=== PATIENT | male | born 1970 | race Caucasian/White ===

== ENCOUNTER 2022-03-29 13:14 | Inpatient (IN) | payer MEDICAID, OTHER, SELFPAY ==
[2022-03-29] VITALS (12 sets, daily range): BP systolic 151–225; BP diastolic 68–130; PULSE 43–82; RESP 14–18; TEMP 37.4; O2SAT 98–99; BMI 24.9
--- NOTE | 2022-03-29 13:25 | ECG_ITS ---
Test Reason : hypertension Blood Pressure : / mmHG Vent. Rate : 059 BPM Atrial Rate : 059 BPM P-R Int : 152 ms QRS Dur : 086 ms QT Int : 406 ms P-R-T Axes : 008 -17 016 degrees QTc Int : 401 ms Sinus bradycardia Otherwise normal ECG No previous ECGs available Referred By: Generic ED Physician Electronically Signed By:TONY VILLAGOMEZ
--- NOTE | 2022-03-29 17:39 | ED.GENADULT ---
HPI - General Adult General Chief complaint: Ear Problems Stated complaint: abnormal ekg ear pain Time Seen by Provider: 03/29/22 17:20 Source: patient Mode of arrival: ambulatory Limitations: no limitations History of Present Illness HPI narrative: Patient comes to the emergency room from urgent care. Patient states that approximately 1 week ago, he was in a construction site in [place], stand and water run inside of his left ear, patient started developing significant pain cough, did not seek medical attention, but [id number] medication. Patient states that he no longer has significant pain but he cannot hear out of his left ear. Patient went to urgent care today and when they were taking his vitals, it was noted the patient's blood pressure was above 220 systolic. Patient states that he has no chest pain, shortness of breath, no pressure, no visual changes or headaches. Patient states that he has no medical problems. Related Data Allergies Allergy/AdvReac Type Severity Reaction Status Date / Time No Known Allergies Allergy Verified 03/29/22 17:39 Review of Systems Review of Systems: Constitutional : No Weight loss, No Fever, No Chills, No Night Sweats, No Fatigue, No Malaise ENT/Mouth : Complaining of left ear discomfort and hearing loss of the left side for approximately 1 week and half, No Ear Pain, No Nasal Congestion, No Sinus Pain, No Hoarseness, No sore throat, No Rhinorrhea, No Swallowing Difficulty Eyes: No Eye Pain, No Swelling, No Redness, No Foreign Body, No Discharge, No Vision Changes Cardiovascular : No Chest Pain, No SOB, No Dyspnea on Exertion, No Orthopnea, No Edema, No Palpitations, asymptomatic, newly informed that he has high blood pressure Respiratory : No Cough, No Sputum, No Wheezing, No Smoke Exposure, No Dyspnea Gastrointestinal : No Nausea, No Vomiting, No Diarrhea, No Constipation, No abdominal Pain, No Hematochezia, No Melena Genitourinary : no irregular bleeding, No Dysuria, No Urinary Frequency, No Hematuria, No Urinary Incontinence, No Urgency, No Flank Pain, No Urinary Flow Changes, No Hesitancy Musculoskeletal : No joint pain, No Myalgias, No Joint Swelling Skin : No Skin Lesions, No rash Neuro : No Weakness, No Numbness, No Paresthesias, No Loss of Consciousness, No Dizziness, No Headache Psych : No Anxiety/Panic, No Depression, No SI/HI/AH/VH, No Social Issues, Heme/Lymph: No Bruising, No Bleeding,No Lymphadenopathy Endocrine : No Polyuria, No Polydipsia, No Temperature Intolerance [facility] Social History Social History Advance Directives: No Advance Directives Information Provided: No Physical Exam ED Vital Signs: Vital Signs - 24 hr 03/29/22 13:20 03/29/22 13:26 03/29/22 18:14 Temperature 99.4 F Pulse Rate 67 62 43 L Respiratory Rate 16 14 Blood Pressure 225/130 H 221/129 H 223/111 H Pulse Oximetry 98 99 Oxygen Delivery Method Room Air 03/29/22 18:15 03/29/22 18:50 03/29/22 19:12 Temperature Pulse Rate 51 62 54 Respiratory Rate 18 16 Blood Pressure 174/101 H 163/96 H Pulse Oximetry 98 98 Oxygen Delivery Method Room Air 03/29/22 20:09 03/29/22 21:39 Temperature Pulse Rate 54 53 Respiratory Rate 16 Blood Pressure 184/103 H 168/103 H Pulse Oximetry 99 Oxygen Delivery Method BMI result Body Mass Index 24.9 Const Other: Appearance: Alert. Oriented X3. No acute distress. Eyes: Pupils equal, round and reactive to light. ENT: Pharynx normal. Right ear within normal limits, left ear mildly erythematous ear canal, the tympanic membrane is ruptured Neck: Normal inspection. Neck supple. No lymph nodes noted. No crepitus CVS: Normal heart rate and rhythm. Pulses normal. Normal S1 and S2 Respiratory: No respiratory distress. Breath sounds normal. No Wheezing. No rales Abdomen: Soft and nontender. No rigidity. No distention. Skin: Skin warm and dry. Normal skin color. Normal skin turgor. Extremities: No lower extremity edema. No Lacerations. No Rash Neuro: Oriented X 3. No motor deficit. No sensory deficit. Moving all extremities. No slurred speech. CN 2 through 12 grossly intact Psych: calm, cooperative, normal affect Course Course Course Narrative: I discussed with the patient that he needs to be followed up by ENT, as the left tympanic membrane is rupture. Patient given p.o. Augmentin for erythematous ear canal, no drainage. Patient's blood pressure is dangerously elevated, 225/130, patient is asymptomatic. Labs are pending, EKG within normal limits, no left ventricular strain noted. Patient being given p.o. labetalol 100 mg After 100 mg of labetalol , patient's blood pressure improved to 180 systolic, patient remains symptomatic, we will give him 1 more dose of medication, this time p.o. amlodipine 10 mg. After the above-mentioned medications, blood pressure is 182/113. Patient remains asymptomatic. Patient getting p.o.hydralazine and nitro paste Patient responds well initially to all other medications. But shortly after, his blood pressure goes back to 230/110. Patient remains asymptomatic. I discussed the patient with Dr. Farmer, we will start the patient on Roque tejada Medical Decision Making Lab Data Result diagrams: 03/29/22 18:13 03/29/22 18:13 Labs: Lab Results 03/29/22 03/29/22 03/29/22 Range/Units 18:13 18:13 18:13 WBC 7.5 (4.8-10.8) X10*3/uL RBC 4.96 (4.60-5.80) X10*6/uL Hgb 15.0 (14.0-18.0) g/dl Hct 43.7 (42.0-52.0) % MCV 88.1 (80.0-98.0) fL MCH 30.2 (27.0-33.0) pg MCHC 34.3 (31.0-36.0) g/dl RDW 12.8 (11.0-16.0) % Plt Count 308 (160-400) X10*3/uL MPV 9.6 (9.4-12.4) fL Immature Gran % (Auto) 0.3 (0.0-0.4) % Neut % (Auto) 54.5 (45-73) % Lymph % (Auto) 34.9 (20-40) % [place] % (Auto) 8.1 (2-11) % Eos % (Auto) 1.7 (0-4) % Baso % (Auto) 0.5 (0-2) % Lymph # (Auto) 2.6 (1.2-4.9) X10*3/uL [place] # (Auto) 0.6 (0.1-1.2) X10*3/uL Eos # (Auto) 0.1 (0.0-0.4) X10*3/uL Baso # (Auto) 0.0 (0.0-0.2) X10*3/uL Abs Immat Gran (auto) 0.02 (0.00-0.03) X10*3/uL Absolute Neuts (auto) 4.1 (2.0-8.3) x10*3/uL Absolute Nucleated RBC 0.000 (0.0-0.012) X10*3/uL Nucleated RBC % (auto) 0.0 (0.0-0.2) /100WBC Sodium 141 (135-145) mmol/L Potassium 3.8 (3.3-5.1) mmol/L Chloride 105 (96-108) mmol/L Carbon Dioxide 25 (22-29) mmol/L Anion Gap 15 (12-20) BUN 22 H (9-16) mg/dL Creatinine 1.11 (0.5-1.4) mg/dL Estim Creat Clear Calc 67.4 Estimated GFR > 60 Random Glucose 97 (60-115) mg/dL Calcium 9.3 (8.4-10.2) mg/dL Total Bilirubin 0.6 (0.0-1.0) mg/dL Direct Bilirubin 0.2 (0.0-0.5) mg/dL AST 24 (5-37) U/L ALT 25 (0-40) U/L Alkaline Phosphatase 118 H (39-117) U/L Troponin I High Sens 4.5 (<3.5-35.0) ng/L Total Protein 7.7 (6.5-8.0) g/dL Albumin 4.3 (3.5-5.0) g/dL Critical Care Time Critical Care Time Critical Care Time: Yes Total Critical Care Time: 60 Attestation: I have personally provided critical care time. Time includes review of lab data, radiology results, discussion with consultants, and monitoring for potential decompensation. Intervention performed as documented. Discharge Plan Discharge Clinical Impression: Hypertension, Rupture of left tympanic membrane Patient Disposition: Admitted As Inpatient
[2022-03-29] MEDS: Amoxicillin/Potassium Clav 875 MG TABLET PO (18:06)
[2022-03-29] MEDS: Labetalol HCL 100 MG TABLET PO (18:06)
--- NOTE | 2022-03-29 18:15 | PC.NURSE ---
patient awake and alert. skin pwd. resp even and non labored. speaking in full, clear sentences. patient hypertensive- denies taking BP meds at home. denies chest pain or dizziness. patient only complains of left ear pain. medicated as ordered for HTN. IV established. Sinus Karthik via tele HR 43-52.
[2022-03-29 18:21] LABS: MANUAL DIFF FLAG NO
[2022-03-29 18:36] LABS: Basophils Percent Auto 0.5 % (0-2); Eosinophils Absolute Auto 0.1 X10*3/uL (0.0-0.4); Eosinophils Percent Auto 1.7 % (0-4); Hematocrit 43.7 % (42.0-52.0); Imm Gran Abs Auto 0.02 X10*3/uL (0.00-0.03); Imm Gran Pct Auto 0.3 % (0.0-0.4); Lymphocytes Absolute Auto 2.6 X10*3/uL (1.2-4.9); Lymphocytes Percent Auto 34.9 % (20-40); Mean Corpuscular HGB Conc 34.3 g/dl (31.0-36.0); Mean Corpuscular Hemoglobin 30.2 pg (27.0-33.0); Mean Corpuscular Volume 88.1 fL (80.0-98.0); Mean Platelet Volume 9.6 fL (9.4-12.4); Monocytes Absolute Auto 0.6 X10*3/uL (0.1-1.2); Monocytes Percent Auto 8.1 % (2-11); Neutrophils Absolute Auto 4.1 x10*3/uL (2.0-8.3); Neutrophils Percent Auto 54.5 % (45-73); Platelet Count 308 X10*3/uL (160-400); Red Blood Count 4.96 X10*6/uL (4.60-5.80); Red Cell Distribution Width 12.8 % (11.0-16.0); White Blood Count 7.5 X10*3/uL (4.8-10.8)
[2022-03-29 18:47] LABS: Alanine Aminotransferase 25 U/L (0-40); Albumin Level 4.3 g/dL (3.5-5.0); Alkaline Phosphatase 118 U/L (39-117); Anion Gap 15 (12-20); Aspartate Amino Transferase 24 U/L (5-37); Bilirubin Direct 0.2 mg/dL (0.0-0.5); Bilirubin Total 0.6 mg/dL (0.0-1.0); Blood Urea Nitrogen 22 mg/dL (9-16); Calcium 9.3 mg/dL (8.4-10.2); Carbon Dioxide 25 mmol/L (22-29); Chloride 105 mmol/L (96-108); Creatinine Clr Calc Pharmacy 67.4; Estimated Glomerular Filt Rate > 60; Glucose Random 97 mg/dL (60-115); Potassium 3.8 mmol/L (3.3-5.1); Sodium 141 mmol/L (135-145); Total Protein 7.7 g/dL (6.5-8.0)
[2022-03-29 18:53] LABS: Troponin-I High Sensitivity 4.5 ng/L (<3.5-35.0)
[2022-03-29] MEDS: amLODIPine Besylate 10 MG TABLET PO (20:10)
[2022-03-29] MEDS: Nitroglycerin 2 % Oint 1 GM Packet 0.5 INCH TRANSDERMA (21:39)
[2022-03-29] MEDS: hydrALAZINE HCl 25 MG TABLET PO (21:39)
--- NOTE | 2022-03-29 22:43 | P.HPCC_ITS ---
History of Present Illness Date of Service: 03/29/22 Attending physician on admission: Enrique Farmer Chief Complaint: left ear pain The patient is a? 51-year-old Nauruan-speaking only male with no known past medical history,? who presented to the emergency room with ear pain.? Patient reported that about approximately 1 week ago, he was in a construction site in [place], where he let water run inside of his left ear. The patient started developing significant pain cough, and treated with [id number] medication.? Today, patient states that he no longer has significant pain but he cannot hear out of his left ear.? On arrival to ED,? patient? blood pressure was elevated to 225/130,? asymptomatic.? Was given 100 mg of labetalol PO,? amlodipine 10,? nitropaste, and p.o. Hydralazine .? initially the patient will respond to p.o. Treatment,? with blood pressure is improving to 180s,? but? will? go back up to 200s? shortly after administration of medications.? He required initiation of Cardene drip. Review of Systems Review of Systems: Constitutional: No weight loss, fever, chills, weakness or fatigue. Eyes: No visual loss, blurred vision, double vision or yellow sclera ENT: left ear discomfort, and left ear decrease hearing. Respiratory: No Dyspnea, cough. No hemoptysis. Cardiovascular: no chest pain. No palpitations. Gastrointestinal: No anorexia, nausea, vomiting or diarrhea. No abdominal pain or blood in stool. Genitourinary: No burning micturition. No urinary frequency or incontinence. Neurologic: No headache, dizziness, syncope, unilateral weakness, ataxia, numbness or tingling in the extremities. No change in bowel or bladder control. Musculoskeletal: No muscle pain, back pain, joint pain or stiffness. Hematologic/Lymphatics: No bleeding or bruising. No painful lymph nodes. Skin: No rash or itching. Endocrine: No reports of sweating. No cold or heat intolerance. Psychiatric: No depression or anxiety PMFSH Past Medical History Functional capacity: independent ambulation Family History Pertinent family history: Mom- CVA Dad- Bone cancer- Social History Social History (Updated 03/30/22 @ 01:29 by Dinora Dumas NP) Patient Tobacco Use Status: Never used Tobacco Advance Directives: No Advance Directives Information Provided: No service: No Current occupational status: employed Meds Allergies Allergy/AdvReac Type Severity Reaction Status Date / Time No Known Allergies Allergy Verified 03/29/22 17:39 Active Medications: Current Medications Enoxaparin Sodium (Enoxaparin Sodium 40 Mg/0.4 Ml Syringe) 40 mg SUBCUT Q24H AMBER Nicardipine HCl 25 mg/ Sodium (Chloride) 260 mls @ 0 mls/hr IVCONT .Q0M AMBER; Protocol Physical Exam Vital Signs: Vital Signs: Last Vital Signs Temp 99.4 F 03/29/22 13:20 Pulse 60 03/29/22 22:17 Resp 16 03/29/22 22:17 BP 180/102 H 03/29/22 22:17 Pulse Ox 98 03/29/22 22:17 O2 Del Method 03/29/22 22:17 BMI result Body Mass Index 24.9 Constitutional: Alert, in no distress. Mental Status: Oriented to person, place and time. Head: Normocephalic. Eyes: Pupils are equal, round and reactive to light. Extraocular muscles intact. Ear, Nose and Throat: Oropharynx clear, mucous membranes moist. right ear intact, within normal limits. left ear with redness, the tympanic membrane rupture. Trachea midline. Neck: Supple, Full range of motion. Respiratory: lungs CTA Cardiovascular: sinus rhythm. S1 S2 regular. No murmurs, rubs or gallops. Gastrointestinal: Abdomen soft, non-tender, non-distended. Normal bowel sounds. No pulsatile mass. No hepatosplenomegaly. Genitourinary: No costovertebral angle tenderness. Neurologic: Cranial nerves II-XII grossly intact. No focal neurological deficits. Moves all extremities spontaneously. Sensation intact bilaterally. Skin: No rashes or lesions. No petechiae or purpura.. Musculoskeletal: No cyanosis or clubbing. No gross deformities. Normal range of motion. Heme/Lymphatics/Immun: Palpation of neck reveals no swelling or tenderness of neck nodes. Psychiatric: Normal mood and affect Results Labs CBC and Chem 7: 03/29/22 18:13 03/29/22 18:13 Labs: Laboratory Results - last 24 hr 03/29/22 03/29/22 18:13 18:13 MCV 88.1 MCH 30.2 MCHC 34.3 RDW 12.8 Plt Count 308 MPV 9.6 Immature Gran % (Auto) 0.3 Neut % (Auto) 54.5 Lymph % (Auto) 34.9 [place] % (Auto) 8.1 Eos % (Auto) 1.7 Baso % (Auto) 0.5 Lymph # (Auto) 2.6 [place] # (Auto) 0.6 Eos # (Auto) 0.1 Baso # (Auto) 0.0 Abs Immat Gran (auto) 0.02 Absolute Neuts (auto) 4.1 Absolute Nucleated RBC 0.000 Nucleated RBC % (auto) 0.0 Anion Gap 15 Estim Creat Clear Calc 67.4 Estimated GFR > 60 Random Glucose 97 Calcium 9.3 Total Bilirubin 0.6 Direct Bilirubin 0.2 AST 24 ALT 25 Alkaline Phosphatase 118 H Total Protein 7.7 Albumin 4.3 Assessment and Plan (1) Rupture of left tympanic membrane: Status: Acute (2) Hypertensive urgency: Status: Acute Plan 51-year-old male? with no known past medical history admitted with hypertensive? urgency Plan: Neuro:? ? No acute issues Cardiac: ? Hypertensive urgency,? patient does not have a history of? hypertension,? but he states he does not see a primary care doctor due to not having health insurance.? He is asymptomatic. ? Continue Cardene drip, avoid rapid decrease of BP. maintain SBP 160-180s.? Wean off as tolerated Pulmonary:? No acute issues. Renal: ? ? no acute issues Endo:? No acute issues.? GI:? No acute issues. ID:? Left tympanic membrane is rupture-? patient was complaining of loss of hearing in left ear,? left tympanic membrane was noted to be rupture.? Started? on Augmentin in the emergency room.? Follow-up with ENT outpatient Heme/Onc:? No acute issues. Psych:? No acute issues. Miscellaneous:? No acute issues. Prophylaxis:? ? Lovenox Diet: cardiac Critical care time spent:? 30 minutes Case discussed with attending Critical Care Time Critical Care Time (minutes): 30
[2022-03-29] MEDS: niCARdipine HCL 25 MG in 0.9 % Sodium Chloride 250 ML 52 MG IVCONT (22:50)
[2022-03-29] MEDS: Enoxaparin Sodium 40 MG/0.4 ML SYRINGE SUBCUT (23:01)
[2022-03-29 23:09] LABS: COVID-19 Test Negative (Negative)
--- NOTE | 2022-03-29 23:12 | MHC.CM.PN ---
CM met with patient with [facility], as pt is Lao speaking only. 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 Pt has [employer]. Only covers emergency services. Dr. Lock had concerns regarding insurance coverage with patient needing ICU care for hypertensive crisis. Face sheet sent to Financial services with request to speak with patient regarding insurance coverage. Pt live in [place]. Is independent and uses no DME/services. Has no PCP. Pt is not vaccinated against Covid 19. CM did not address HCP. CM will follow for d/c needs.
[2022-03-30] VITALS (18 sets, daily range): BP systolic 112–138; BP diastolic 65–92; PULSE 58–86; RESP 12–19; TEMP 36.6–36.8; O2SAT 94–99; BMI 28.9
--- NOTE | 2022-03-30 00:49 | PC.NURSE ---
At 2330 03/29/22 pt's SBP in 150s. Nicardipine titrated down at that time. At 0030 BP noted to have dropped significantly to 112 systolic. Pt denies dizziness or related sx. ICU TOPOLOGY PROFESSOR notified. Report given to Eduardo MARIA. Pt being transfered to ICU now by this RN.
--- NOTE | 2022-03-30 04:06 | PC.NURSE ---
ADMIT TO 260-1 APPROX 1AM...ALERT...ORIENTED X3...RESPIRATIONS EASY ON ROOM AIR...NSR..NO ECTOPY....SBP 110'S-120'S....CARDENE DRIP PREVIOUSLY WEANED OFF IN ER DEPT PRIOR TO ADMISSION...ASYMPTOMATIC...DENIES DIZZYNESS...AMBULATED FROM STRETCHER TO BED W/O DIZZYNESS...CALM/CO-OPERATIVE..REMAINS W/O HEARING IN LEFT EAAR..ICU SPORTS JOURNALIST PRESENT AND AWARE...SERIAL BP'S STABLE OVERNIGHT..DENIES/OFFERS NO COMPLAINTS..RESTFUL
[2022-03-30 05:44] LABS: MANUAL DIFF FLAG NO
[2022-03-30 05:48] LABS: Basophils Absolute Auto 0.1 X10*3/uL (0.0-0.2); Basophils Percent Auto 0.7 % (0-2); Eosinophils Absolute Auto 0.2 X10*3/uL (0.0-0.4); Eosinophils Percent Auto 2.5 % (0-4); Hematocrit 39.2 % (42.0-52.0); Hemoglobin 13.8 g/dl (14.0-18.0); Imm Gran Abs Auto 0.03 X10*3/uL (0.00-0.03); Imm Gran Pct Auto 0.4 % (0.0-0.4); Lymphocytes Absolute Auto 2.4 X10*3/uL (1.2-4.9); Mean Corpuscular HGB Conc 35.2 g/dl (31.0-36.0); Mean Corpuscular Hemoglobin 31.6 pg (27.0-33.0); Mean Corpuscular Volume 89.7 fL (80.0-98.0); Mean Platelet Volume 9.5 fL (9.4-12.4); Monocytes Absolute Auto 0.6 X10*3/uL (0.1-1.2); Monocytes Percent Auto 9.5 % (2-11); Neutrophils Absolute Auto 3.5 x10*3/uL (2.0-8.3); Neutrophils Percent Auto 51.9 % (45-73); Platelet Count 273 X10*3/uL (160-400); Red Blood Count 4.37 X10*6/uL (4.60-5.80); Red Cell Distribution Width 12.8 % (11.0-16.0); White Blood Count 6.8 X10*3/uL (4.8-10.8)
[2022-03-30 06:13] LABS: Albumin Level 3.6 g/dL (3.5-5.0); Anion Gap 14 (12-20); Blood Urea Nitrogen 23 mg/dL (9-16); Calcium 8.7 mg/dL (8.4-10.2); Carbon Dioxide 23 mmol/L (22-29); Chloride 105 mmol/L (96-108); Creatinine Clr Calc Pharmacy 77.3; Estimated Glomerular Filt Rate > 60; Glucose Random 99 mg/dL (60-115); Magnesium 2.1 mg/dL (1.6-2.6); Potassium 3.7 mmol/L (3.3-5.1); Sodium 138 mmol/L (135-145)
[2022-03-30] MEDS: Amoxicillin/Potassium Clav 875 MG TABLET PO ×2 (08:37→20:09)
--- NOTE | 2022-03-30 13:47 | PM.CCPN ---
Subjective Subjective Date of Service: 03/30/22 Interval History: 51-year-old gentleman admitted on 03/29/2022 after patient was noted to have hypertensive urgency when being evaluated for left ear pain/ruptured tympanic membrane. Patient was started on now Augmentin and has had suboptimal response to parenteral antihypertensives. He was started on Cardene drip and transferred to intensive care unit. No events overnight. Titrated off Cardene drip. Critical Care Time (minutes): 0 Physical Exam Vital Signs: Vital Signs: Last Vital Signs Temp 98.0 F 03/30/22 04:54 Pulse 59 03/30/22 12:00 Resp 16 03/30/22 12:00 BP 130/87 03/30/22 12:00 Pulse Ox 97 03/30/22 12:00 O2 Del Method 03/30/22 12:00 BMI result Body Mass Index 28.9 Const: General: no acute distress, alert and awake Eyes: Sclerae: sclerae normal EOM: EOMs intact bilaterally Neck: Neck: Yes no lymphadenopathy, Yes trachea midline and Yes supple Resp: Effort & Inspection: normal respiratory effort and no respiratory distress Auscultation: clear to auscultation bilaterally Cardio: Rate: regular rate Rhythm: regular rhythm Heart sounds: no gallops, no murmurs and no rubs GI: Palpation (GI): Soft to palpation and Other GI palpation findings present ( Nontender) Auscultation: normal bowel sounds Extrem: General: Yes no pedal edema, No clubbing and No cyanosis Objective Data Labs CBC & Chem 7: 03/30/22 05:22 03/30/22 05:22 Labs: Laboratory Results - last 24 hr 03/29/22 03/29/22 03/29/22 18:13 18:13 18:13 WBC 7.5 RBC 4.96 Hgb 15.0 Hct 43.7 MCV 88.1 MCH 30.2 MCHC 34.3 RDW 12.8 Plt Count 308 MPV 9.6 Immature Gran % (Auto) 0.3 Neut % (Auto) 54.5 Lymph % (Auto) 34.9 [place] % (Auto) 8.1 Eos % (Auto) 1.7 Baso % (Auto) 0.5 Lymph # (Auto) 2.6 [place] # (Auto) 0.6 Eos # (Auto) 0.1 Baso # (Auto) 0.0 Abs Immat Gran (auto) 0.02 Absolute Neuts (auto) 4.1 Absolute Nucleated RBC 0.000 Nucleated RBC % (auto) 0.0 Sodium 141 Potassium 3.8 Chloride 105 Carbon Dioxide 25 Anion Gap 15 BUN 22 H Creatinine 1.11 Estim Creat Clear Calc 67.4 Estimated GFR > 60 Random Glucose 97 Calcium 9.3 Phosphorus Magnesium Total Bilirubin 0.6 Direct Bilirubin 0.2 AST 24 ALT 25 Alkaline Phosphatase 118 H Troponin I High Sens 4.5 Total Protein 7.7 Albumin 4.3 COVID-19 (LING) COVID-19 Clin Com 03/29/22 03/30/22 03/30/22 22:47 05:22 05:22 WBC 6.8 RBC 4.37 L Hgb 13.8 L Hct 39.2 L MCV 89.7 MCH 31.6 MCHC 35.2 RDW 12.8 Plt Count 273 MPV 9.5 Immature Gran % (Auto) 0.4 Neut % (Auto) 51.9 Lymph % (Auto) 35.0 [place] % (Auto) 9.5 Eos % (Auto) 2.5 Baso % (Auto) 0.7 Lymph # (Auto) 2.4 [place] # (Auto) 0.6 Eos # (Auto) 0.2 Baso # (Auto) 0.1 Abs Immat Gran (auto) 0.03 Absolute Neuts (auto) 3.5 Absolute Nucleated RBC 0.000 Nucleated RBC % (auto) 0.0 Sodium 138 Potassium 3.7 Chloride 105 Carbon Dioxide 23 Anion Gap 14 BUN 23 H Creatinine 1.08 Estim Creat Clear Calc 77.3 Estimated GFR > 60 Random Glucose 99 Calcium 8.7 D Phosphorus 4.0 Magnesium 2.1 Total Bilirubin Direct Bilirubin AST ALT Alkaline Phosphatase Troponin I High Sens Total Protein Albumin 3.6 COVID-19 (LING) Negative COVID-19 Clin Com See Note Progress Note: A&P Assessment and plan (1) Rupture of left tympanic membrane: Status: Acute (2) Hypertensive urgency: Status: Acute Plan Assessment: 51-year-old gentleman admitted with hypertensive urgency, now resolved Plan: Neuro: No acute issues. Cardiac: Hypertensive urgency resolved. Titrated off Cardene drip. Pulmonary: No acute issues. Renal: No acute issues. Endo: No acute issues. GI: No acute issues. ID: No acute issues Heme/Onc: No acute issues. Psych: No acute issues. Miscellaneous: Left tympanic membrane rupture, continue on Augmentin. Patient will have an outpatient ENT evaluation. Prophylaxis: Lovenox Diet: Regular Quality Stroke Does the patient have a stroke diagnosis?: No VTE Prior VTE?: No VTE Risk Level:: Medical - low VTE Device Contraindication: Treatment Not Indicated VTE Drug Contraindication: N/A - Med Ordered
[2022-03-30] MEDS: amLODIPine Besylate 5 MG TABLET PO (22:04)
[2022-03-30] MEDS: Enoxaparin Sodium 40 MG/0.4 ML SYRINGE SUBCUT (22:05)
[2022-03-31 03:26] VITALS: BP 141/78; PULSE 68; RESP 17; TEMP 36.6; O2SAT 97
[2022-03-31 07:08] LABS: MANUAL DIFF FLAG NO
[2022-03-31 07:13] LABS: Basophils Percent Auto 0.4 % (0-2); Eosinophils Absolute Auto 0.2 X10*3/uL (0.0-0.4); Eosinophils Percent Auto 2.5 % (0-4); Hematocrit 41.9 % (42.0-52.0); Hemoglobin 14.4 g/dl (14.0-18.0); Imm Gran Abs Auto 0.02 X10*3/uL (0.00-0.03); Imm Gran Pct Auto 0.3 % (0.0-0.4); Lymphocytes Absolute Auto 2.5 X10*3/uL (1.2-4.9); Lymphocytes Percent Auto 34.9 % (20-40); Mean Corpuscular HGB Conc 34.4 g/dl (31.0-36.0); Mean Corpuscular Hemoglobin 30.1 pg (27.0-33.0); Mean Corpuscular Volume 87.5 fL (80.0-98.0); Mean Platelet Volume 9.5 fL (9.4-12.4); Monocytes Absolute Auto 0.6 X10*3/uL (0.1-1.2); Monocytes Percent Auto 8.1 % (2-11); Neutrophils Absolute Auto 3.8 x10*3/uL (2.0-8.3); Neutrophils Percent Auto 53.8 % (45-73); Platelet Count 301 X10*3/uL (160-400); Red Blood Count 4.79 X10*6/uL (4.60-5.80); Red Cell Distribution Width 12.5 % (11.0-16.0); White Blood Count 7.1 X10*3/uL (4.8-10.8)
[2022-03-31 07:47] VITALS: BP 134/86; PULSE 86; RESP 19; TEMP 36.9; O2SAT 96
[2022-03-31 07:57] LABS: Alanine Aminotransferase 22 U/L (0-40); Albumin Level 3.7 g/dL (3.5-5.0); Alkaline Phosphatase 104 U/L (39-117); Anion Gap 13 (12-20); Aspartate Amino Transferase 19 U/L (5-37); Bilirubin Total 0.6 mg/dL (0.0-1.0); Blood Urea Nitrogen 24 mg/dL (9-16); Calcium 8.9 mg/dL (8.4-10.2); Carbon Dioxide 23 mmol/L (22-29); Chloride 106 mmol/L (96-108); Creatinine Clr Calc Pharmacy 70.7; Estimated Glomerular Filt Rate > 60; Glucose Fasting 92 mg/dL (60-99); Sodium 138 mmol/L (135-145); Total Protein 6.8 g/dL (6.5-8.0)
[2022-03-31] MEDS: amLODIPine Besylate 5 MG TABLET PO (08:33)
[2022-03-31] MEDS: Amoxicillin/Potassium Clav 875 MG TABLET PO ×2 (08:33→20:17)
[2022-03-31 09:19] LABS: Estimated Average Glucose 100 mg/dL; Hemoglobin A1c % 5.1 %
[2022-03-31 09:20] LABS: Amphetamine Screen Urine Not Detected (Not Detect); Barbiturates, Urine Not Detected (Not Detect); Benzodiazepines Screen Urine Not Detected (Not Detect); Cannabinoid Screen Urine Not Detected (Not Detect); Cocaine Screen Urine Not Detected (Not Detect); Fentanyl, urine Not Detected (Not Detect); Opiate Screen Urine Not Detected (Not Detect); Phencyclidine Screen Urine Not Detected (Not Detect)
[2022-03-31 11:43] VITALS: BP 112/72; PULSE 67; RESP 19; TEMP 36.6; O2SAT 96
--- NOTE | 2022-03-31 15:20 | HO.PM.IMPN ---
Subjective Subjective Date of Service: 03/31/22 Interval History: This history was taken in Amharic from the patient. Denies BARROW or CP L ear pain improved Review of Systems Review of Systems: Yes all other systems are reviewed and are negative Physical Exam Vital Signs: Vital Signs: Last Vital Signs Temp 97.9 F 03/31/22 11:43 Pulse 67 03/31/22 11:43 Resp 19 03/31/22 11:43 BP 112/72 03/31/22 11:43 Pulse Ox 96 03/31/22 11:43 O2 Del Method 03/31/22 11:43 BMI result Body Mass Index 28.9 Gen: in no acute distress HEENT: sclera anicteric, moist mucus membranes Neck: supple Lungs: clear to auscultation bilaterally Heart: regular rate and rhythm, no murmurs Abd: soft, non-tender, non-distended Ext: no edema Skin: warm/well-perfused Neuro: alert and oriented x3, no focal findings Psych: appropriate affect Objective Data Active Medications Amlodipine Besylate (Amlodipine Besylate 5 Mg Tablet) 5 mg PO DAILY AMBER; Protocol Last Admin: 03/31/22 08:33 Dose: 5 mg Documented By: MANUELA Amoxicillin/Clavulanate Potassium (Amoxicillin/Potassium Clav 875 Mg Tablet) 875 mg PO Q12H [facility] Last Admin: 03/31/22 08:33 Dose: 875 mg Documented By: MANUELA Enoxaparin Sodium (Enoxaparin Sodium 40 Mg/0.4 Ml Syringe) 40 mg SUBCUT Q24H [facility] Last Admin: 03/30/22 22:05 Dose: 40 mg Documented By: DAMARIS Labs CBC & Chem 7: 03/31/22 06:58 03/31/22 06:58 Labs: Laboratory Results - last 24 hr 03/31/22 03/31/22 03/31/22 06:58 06:58 06:58 MCV 87.5 MCH 30.1 MCHC 34.4 RDW 12.5 Plt Count 301 MPV 9.5 Immature Gran % (Auto) 0.3 Neut % (Auto) 53.8 Lymph % (Auto) 34.9 [place] % (Auto) 8.1 Eos % (Auto) 2.5 Baso % (Auto) 0.4 Lymph # (Auto) 2.5 [place] # (Auto) 0.6 Eos # (Auto) 0.2 Baso # (Auto) 0.0 Abs Immat Gran (auto) 0.02 Absolute Neuts (auto) 3.8 Absolute Nucleated RBC 0.000 Nucleated RBC % (auto) 0.0 Anion Gap 13 Estim Creat Clear Calc 70.7 Estimated GFR > 60 Fasting Glucose 92 Estimat Average Glucose 100 Hemoglobin A1c % 5.1 Calcium 8.9 Total Bilirubin 0.6 AST 19 ALT 22 Alkaline Phosphatase 104 Total Protein 6.8 Albumin 3.7 Urine Opiates Screen Urine Fentanyl Screen Ur Barbiturates Screen Ur Phencyclidine Scrn Ur Amphetamines Screen U Benzodiazepines Scrn Urine Cocaine Screen U Marijuana (THC) Screen 03/31/22 08:37 MCV MCH MCHC RDW Plt Count MPV Immature Gran % (Auto) Neut % (Auto) Lymph % (Auto) [place] % (Auto) Eos % (Auto) Baso % (Auto) Lymph # (Auto) [place] # (Auto) Eos # (Auto) Baso # (Auto) Abs Immat Gran (auto) Absolute Neuts (auto) Absolute Nucleated RBC Nucleated RBC % (auto) Anion Gap Estim Creat Clear Calc Estimated GFR Fasting Glucose Estimat Average Glucose Hemoglobin A1c % Calcium Total Bilirubin AST ALT Alkaline Phosphatase Total Protein Albumin Urine Opiates Screen Not Detected Urine Fentanyl Screen Not Detected Ur Barbiturates Screen Not Detected Ur Phencyclidine Scrn Not Detected Ur Amphetamines Screen Not Detected U Benzodiazepines Scrn Not Detected Urine Cocaine Screen Not Detected U Marijuana (THC) Screen Not Detected Assessment and Plan (1) Hypertensive urgency: Status: Acute (2) Rupture of left tympanic membrane: Status: Acute Plan hospital d#3 51yo M with no prior chronic medical conditions admitted to ICU for nicardipine drip for HTN urgency noted when being evaluated for L ear pain/tympanic membrane rupture stepped [place] [facility] [place] # HTN urgency - now controlled on amlodipine, if maintains BP control to d/c home tomorrow and will need primary care f/u at [facility] # L tympanic membrane perforation - amox/clav d#09/25, outpt primary care +/- ENT f/u # VTE ppx: LMWH In my clinical judgment, the patient requires continued hospitalization for the following reasons: BP monitoring Quality Stroke Does the patient have a stroke diagnosis?: No VTE Prior VTE?: No VTE Risk Level:: Medical - low VTE Device Contraindication: Treatment Not Indicated VTE Drug Contraindication: N/A - Med Ordered
[2022-03-31 16:00] VITALS: BP 139/85; PULSE 67; RESP 19; TEMP 36.6; O2SAT 95
[2022-03-31 19:32] VITALS: BP 138/88; PULSE 64; RESP 18; TEMP 36.4; O2SAT 96
[2022-03-31 23:23] VITALS: BP 148/83; PULSE 61; RESP 18; TEMP 36.6; O2SAT 95
[2022-04-01 03:16] VITALS: BP 137/79; PULSE 66; RESP 17; TEMP 36.9; O2SAT 95
[2022-04-01 08:00] VITALS: BP 141/90; PULSE 55; RESP 14; TEMP 36.9; O2SAT 94
[2022-04-01] MEDS: amLODIPine Besylate 5 MG TABLET PO (08:18)
[2022-04-01] MEDS: Amoxicillin/Potassium Clav 875 MG TABLET PO (08:18)
--- NOTE | 2022-04-01 10:20 | PM.DS ---
DS: Providers Provider Date of Service: 04/01/22 Date of admission: 03/29/22 22:35 Date of discharge: 04/01/22 Primary care physician: Luis Physician DS: Diagnosis Discharge Diagnosis (1) Hypertensive urgency: Status: Acute (2) Rupture of left tympanic membrane: Status: Acute DS: Summary Hospital Course Hospital Course: from admission H+P by perfume maker Dinora Dumas NP, 03/30/22: The patient is a? 51-year-old? French-speaking only male with no known past medical history,? who presented to the emergency room with ear pain.? Patient reported that about approximately 1 week ago, he was in a construction site in [place], where he let water run inside of his left ear. The patient started developing significant pain cough, and treated with [id number] medication.? Today, patient states that he no longer has significant pain but he cannot hear out of his left ear.? On arrival to ED,? patient? blood pressure was elevated to 225/130,? asymptomatic.? Was given 100 mg of labetalol PO,? amlodipine 10,? nitropaste, and p.o. Hydralazine .? initially the patient will respond to p.o. Treatment,? with blood pressure is improving to 180s,? but? will? go back up to 200s? shortly after administration of medications.? He required initiation of Cardene drip. He was stepped down to the medical-surgical floor on 03/30/22 and started on amlodipine for blood pressure control. For his tympanic membrane perforation, he was given amoxcillin-clavulanate. He was discharged on these medications and instructed establish primary care at [facility] for follow-up. Time Spent with Patient Time attestation: Total time spent providing and/or coordinating discharge services: 35 Discharge coordination time: Greater than 30 minutes Quality: Safe Use of Opioids Does Pt have an Active Cancer Diagnosis on the Problem List?: No Quality: Stroke Does the patient have a stroke diagnosis?: No Physical Exam Vital Signs: Vital Signs: Last Vital Signs Temp 98.4 F 04/01/22 08:00 Pulse 55 04/01/22 08:00 Resp 14 04/01/22 08:00 BP 141/90 H 04/01/22 08:00 Pulse Ox 94 04/01/22 08:00 O2 Del Method 04/01/22 08:00 BMI result Body Mass Index 28.9 Gen: in no acute distress HEENT: sclera anicteric, moist mucus membranes Neck: supple Lungs: clear to auscultation bilaterally Heart: regular rate and rhythm, no murmurs Abd: soft, non-tender, non-distended Ext: no edema Skin: warm/well-perfused Neuro: alert and oriented x3, no focal findings Psych: appropriate affect DS: Data Data Completed and Pending Completed studies during hospitalization [Text1]: Laboratory Results WBC 7.1 X10*3/uL (4.8-10.8) 03/31/22 06:58 RBC 4.79 X10*6/uL (4.60-5.80) 03/31/22 06:58 Hgb 14.4 g/dl (14.0-18.0) 03/31/22 06:58 Hct 41.9 % (42.0-52.0) L 03/31/22 06:58 MCV 87.5 fL (80.0-98.0) 03/31/22 06:58 MCH 30.1 pg (27.0-33.0) 03/31/22 06:58 MCHC 34.4 g/dl (31.0-36.0) 03/31/22 06:58 RDW 12.5 % (11.0-16.0) 03/31/22 06:58 Plt Count 301 X10*3/uL (160-400) 03/31/22 06:58 MPV 9.5 fL (9.4-12.4) 03/31/22 06:58 Immature Gran % (Auto) 0.3 % (0.0-0.4) 03/31/22 06:58 Neut % (Auto) 53.8 % (45-73) 03/31/22 06:58 Lymph % (Auto) 34.9 % (20-40) 03/31/22 06:58 [place] % (Auto) 8.1 % (2-11) 03/31/22 06:58 Eos % (Auto) 2.5 % (0-4) 03/31/22 06:58 Baso % (Auto) 0.4 % (0-2) 03/31/22 06:58 Lymph # (Auto) 2.5 X10*3/uL (1.2-4.9) 03/31/22 06:58 [place] # (Auto) 0.6 X10*3/uL (0.1-1.2) 03/31/22 06:58 Eos # (Auto) 0.2 X10*3/uL (0.0-0.4) 03/31/22 06:58 Baso # (Auto) 0.0 X10*3/uL (0.0-0.2) 03/31/22 06:58 Abs Immat Gran (auto) 0.02 X10*3/uL (0.00-0.03) 03/31/22 06:58 Absolute Neuts (auto) 3.8 x10*3/uL (2.0-8.3) 03/31/22 06:58 Absolute Nucleated RBC 0.000 X10*3/uL (0.0-0.012) 03/31/22 06:58 Nucleated RBC % (auto) 0.0 /100WBC (0.0-0.2) 03/31/22 06:58 Sodium 138 mmol/L (135-145) 03/31/22 06:58 Potassium 4.0 mmol/L (3.3-5.1) 03/31/22 06:58 Chloride 106 mmol/L (96-108) 03/31/22 06:58 Carbon Dioxide 23 mmol/L (22-29) 03/31/22 06:58 Anion Gap 13 (12-20) 03/31/22 06:58 BUN 24 mg/dL (9-16) H 03/31/22 06:58 Creatinine 1.18 mg/dL (0.5-1.4) 03/31/22 06:58 Estim Creat Clear Calc 70.7 03/31/22 06:58 Estimated GFR > 60 03/31/22 06:58 Random Glucose 99 mg/dL (60-115) 03/30/22 05:22 Fasting Glucose 92 mg/dL (60-99) 03/31/22 06:58 Estimat Average Glucose 100 mg/dL 03/31/22 06:58 Hemoglobin A1c % 5.1 % 03/31/22 06:58 Calcium 8.9 mg/dL (8.4-10.2) 03/31/22 06:58 Phosphorus 4.0 mg/dL (2.7-4.5) 03/30/22 05:22 Magnesium 2.1 mg/dL (1.6-2.6) 03/30/22 05:22 Total Bilirubin 0.6 mg/dL (0.0-1.0) 03/31/22 06:58 Direct Bilirubin 0.2 mg/dL (0.0-0.5) 03/29/22 18:13 AST 19 U/L (5-37) 03/31/22 06:58 ALT 22 U/L (0-40) 03/31/22 06:58 Alkaline Phosphatase 104 U/L (39-117) 03/31/22 06:58 Troponin I High Sens 4.5 ng/L (<3.5-35.0) 03/29/22 18:13 Total Protein 6.8 g/dL (6.5-8.0) 03/31/22 06:58 Albumin 3.7 g/dL (3.5-5.0) 03/31/22 06:58 Urine Opiates Screen Not Detected (Not Detect) 03/31/22 08:37 Urine Fentanyl Screen Not Detected (Not Detect) 03/31/22 08:37 Ur Barbiturates Screen Not Detected (Not Detect) 03/31/22 08:37 Ur Phencyclidine Scrn Not Detected (Not Detect) 03/31/22 08:37 Ur Amphetamines Screen Not Detected (Not Detect) 03/31/22 08:37 U Benzodiazepines Scrn Not Detected (Not Detect) 03/31/22 08:37 Urine Cocaine Screen Not Detected (Not Detect) 03/31/22 08:37 U Marijuana (THC) Screen Not Detected (Not Detect) 03/31/22 08:37 COVID-19 (LING) Negative (Negative) 03/29/22 22:47 COVID-19 Clin Com See Note 03/29/22 22:47 Discharge Plan Discharge Patient Disposition: Home, Self-Care Discharge Diagnosis: hypertensive urgency left tympanic membrane rupture Referrals: [facility] [Provider Group] - 1 Week Physician,None [Primary Care Provider] - 1 Week Discharge Medications: New amlodipine 5 mg Tablet 5 mg PO DAILY Qty: 30 2RF Protocol: Hold for SBP< HOLD for SBP < : 90 amoxicillin-pot clavulanate 875-125 mg Tablet 875 mg PO BID Qty: 8 0RF Discharge Orders: Discharge Order (Routine); Ordered 04/01/22 Ordered By: Michael Kinney Diet: Low salt diet Activity on Discharge: As tolerated Stand Alone Forms: Patient Portal Discharge page Care Plan Goals: blood pressure control ear healing Health Concerns: hypertensive urgency left tympanic membrane rupture Plan of Treatment: low-sodium diet; take amlodipine 5 mg daily take amoxicillin/clavulanate 875/125 mg twice daily x 4 days follow up at [facility] to establish primary care as soon as possible Please return to the hospital if you experience recurrent or worsening symptoms, Assessment: See Discharge Summary Patient Instructions: Hypertension (DC)
--- NOTE | 2022-04-01 10:38 | MHC.CM.PN ---
order home, self care. CM acknowledged.
== END 2022-04-01 11:00 | disposition home or self-care (01) | DRG 199 ==
LOC: HO.ED 22:45 → HO.EDOVER 22:49 → HO.ICU 03-30 00:13 → HO.S3 03-30 20:57
PROVIDERS: Hospitalist; Admitting Provider Registered Nurse Community Health; Emergency Provider Emergency Medicine; Visit Provider Family Medicine
DX: I16.0 Hypertensive urgency (principal); H72.92 Unspecified perforation of tympanic membrane, left ear; Z20.822 Contact with and (suspected) exposure to COVID-19
CPT/HCPCS: 36415; 80048; 80053; 80076; 80307; 82040; 83036; 83735; 84100; 84484; 85025; 87635; 93005; 99218; 99285; J1650